=== PATIENT | male | born 1950 | race Caucasian/White ===

== ENCOUNTER 2021-09-16 00:35 | Inpatient (IN) | payer OTHER, SELFPAY ==
[2021-09-16] VITALS (9 sets, daily range): BP systolic 97–138; BP diastolic 56–81; PULSE 52–71; RESP 16–18; TEMP 36.4–37.9; O2SAT 96–99; BMI 25.6
--- NOTE | 2021-09-16 00:47 | ED.GENADULT ---
HPI - General Adult General Chief complaint: Abdominal Pain Stated complaint: passing kidney stone Time Seen by Provider: 09/16/21 00:42 Source: patient Mode of arrival: Ambulatory Limitations: no limitations History of Present Illness HPI narrative: Patient is a 71-year-old male. Has a history of testicular cancer. Also history of rheumatoid arthritis. Is on prednisone. Arrives emergency department today for right-sided flank pain. He states that it started earlier today. He has had a kidney stone in the past and he states this feels similar to kidney stone. He also thought the blood in his urine earlier today. His abdomen is tender to palpation. No fevers. He did take some of his oxycodone without much improvement of symptoms. Related Data Home Medications Medication Instructions Recorded Confirmed lisinopril 5 mg tablet 5 mg PO DAILY 09/16/21 09/16/21 oxycodone 5 mg tablet 5 mg PO QID PRN RA pain 09/16/21 09/16/21 Allergies Allergy/AdvReac Type Severity Reaction Status Date / Time No Known Drug Allergies Allergy Verified 09/16/21 00:51 Review of Systems Constitutional Constitutional: Reports system reviewed and no additional complaints, except as documented Gastrointestinal Gastrointestinal: Reports system reviewed and no additional complaints, except as documented Genitourinary Genitourinary: Reports system reviewed and no additional complaints, except as documented Integumentary/Breasts Skin/Breast: Reports system reviewed and no additional complaints, except as documented Hematologic/Lymphatic On Anticoagulants: No Patient History Medical History Essential hypertension Fibrosis lung Rheumatoid arthritis Rheumatoid nodule Testicular cancer Surgical History (Updated 09/16/21 @ 04:35 by DEBORAH Gilliland) History of lobectomy of lung History of lymph node biopsy Family History (Updated 09/16/21 @ 04:37 by DEBORAH Gilliland) Sister Diabetes mellitus Mother Diabetes mellitus Father Cancer Brother Diabetes mellitus Social History marital status: details: Lives with spouse, retired disabled household members: spouse do you feel safe at home: Yes Smoking Status: Former smoker quit status: quit date established (Quit 17 yrs ago) alcohol intake: never substance use type: does not use Smoking Status: Former smoker alcohol intake frequency: holidays/special occasions only Substance Use Type: does not use Exam Initial Vital Signs Initial Vital Signs: Vital Signs Temperature 99.3 F 09/16/21 00:44 Pulse Rate 71 09/16/21 00:44 Respiratory Rate 18 09/16/21 00:44 Blood Pressure 138/65 09/16/21 00:44 Pulse Oximetry 99 09/16/21 00:44 Oxygen Delivery Method 09/16/21 00:44 Const General: cooperative and comfortable HENMT Head: normal to inspection and normocephalic Resp Effort & Inspection: normal respiratory effort Auscultation: clear to auscultation bilaterally Cardio Rate: regular rate Rhythm: regular rhythm GI Inspection: non-distended Palpation: tender (Right side abdomen and suprapubic region) Other: Well-healed surgical incision midline abdomen Skin General: no rashes or lesions noted Neuro General: patient alert, patient awake and moves all extremities Extrem General: normal to inspection and capillary refill normal Course Orders Ordered: ED Orders 09/16/21 00:50 Complete Blood Count AUTO DIFF Stat 09/16/21 01:27 CT kidney ureter bladder (KUB) Stat 09/16/21 01:31 Basic Metabolic Panel Stat Lactate (Lactic Acid) Stat 09/16/21 02:26 Consult to Internal Medicine Stat 09/16/21 02:30 Consult to General Surgery Urgent 09/16/21 02:39 Blood Culture Stat Hydromorphone HCl (Hydromorphone 0.5 Mg Inj) 0.5 mg IV Q2H PRN PRN Reason: Pain, Mild (1-3) Last Admin: 09/16/21 04:22 Dose: 0.5 mg Documented By: MS Sodium Chloride (Normal Saline 0.9%) 1,000 mls @ 125 mls/hr IV CONT UBALDO Last Admin: 09/16/21 02:33 Dose: 125 mls/hr Documented By: ANTHONY Methotrexate (Methotrexate 2.5 Mg Tablet) 20 mg PO BID UBALDO Ondansetron HCl (Ondansetron 4 Mg/2 Ml Inj) 4 mg IV Q4HR PRN PRN Reason: Nausea And Vomiting Prednisone (Prednisone 20 Mg Tablet) 30 mg PO DAILY [facility] Stop: 09/18/21 08:59 Prednisone (Prednisone 5 Mg Tablet) 25 mg PO DAILY [facility] Stop: 09/25/21 08:59 Discontinued Medications Hydromorphone HCl (Hydromorphone 0.5 Mg Inj) 0.5 mg IV NOW ONE Stop: 09/16/21 02:26 Last Admin: 09/16/21 02:33 Dose: 0.5 mg Documented By: ANTHONY Sodium Chloride (Normal Saline 0.9%) 1,000 mls @ 500 mls/hr IV BOLUS ONE Stop: 09/16/21 03:09 Last Admin: 09/16/21 01:36 Dose: Not Given Documented By: MANJEET Ciprofloxacin (Cipro) 400 mg in 200 mls @ 200 mls/hr IV NOW ONE Stop: 09/16/21 03:23 Last Admin: 09/16/21 02:45 Dose: 200 mls/hr Documented By: ANTHONY Metronidazole (Flagyl) 500 mg in 100 mls @ 100 mls/hr IV NOW ONE Stop: 09/16/21 03:23 Last Admin: 09/16/21 04:59 Dose: 100 mls/hr Ketorolac Tromethamine (Ketorolac 30 Mg/Ml Vial) 30 mg IV NOW ONE Stop: 09/16/21 00:45 Last Admin: 09/16/21 00:52 Dose: 30 mg Documented By: MANJEET Vital Signs Vital signs: Vital Signs - 8 hr 09/16/21 00:44 Temperature 99.3 F Pulse Rate 71 Respiratory Rate 18 Blood Pressure 138/65 Pulse Oximetry 99 Oxygen Delivery Method Room Air Medical Decision Making Lab Data Lab results reviewed: Yes I reviewed the patient's lab results. Result diagrams: 09/16/21 00:50 09/16/21 01:31 Labs: Lab Results 09/16/21 09/16/21 09/16/21 Range/Units 00:50 01:31 01:31 WBC 14.2 H (4.5-11.0) X10^3/uL RBC 4.20 L (4.5-5.9) X10^6/uL Hgb 13.2 L (13.5-17.5) g/dL Hct 39.8 L (41-53) % MCV 94.9 (80-100) fL MCH 31.4 (26-34) PG MCHC 33.1 (30-36) % RDW 16.3 H (11.6-14.8) % Plt Count 210 (150-400) X10^3/uL Neut % (Auto) 90.6 H (50-75) % Lymph % (Auto) 4.7 L (25-40) % [place] % (Auto) 3.5 (3-14) % Eos % (Auto) 0.9 L (2-4) % Baso % (Auto) 0.3 (0-2) % Neut # (Auto) 64362 H (6674-7898) /uL Lymph # (Auto) 700 L (6325-9487) /uL [place] # (Auto) 500 (0-900) /uL Eos # (Auto) 100 (0-450) /uL Baso # (Auto) 0 (0-100) /uL Sodium 136 L (137-145) mmol/L Potassium 4.4 (3.4-5.1) mmol/L Chloride 104 (98-107) mmol/L Carbon Dioxide 27 (22-32) mmol/L BUN 19 (9-20) mg/dL Creatinine 0.81 (0.66-1.25) mg/dL Estimated GFR > 60 (>60) mL/min BUN/Creatinine Ratio 23.5 H (6-22) Glucose 127 H (80-110) mg/dL Lactate 1.7 (0.7-2.1) mmol/L Calcium 8.4 (8.4-10.2) mg/dL Urine Dip Bedside Urine Glucose Negative Bedside Urine Bilirubin - Negative Bedside Urine Ketone - Negative Urine Specific [place] 1.025 Bedside Urine Occult Blood - Negative Bedside Urine pH 6.0 Bedside Urine Protein - Negative Bedside Urine Urobilinogen +/- 1mg Bedside Urine Nitrite - Negative Bedside Urine Leukocytes - Negative Esterase Point of care testing: Urine Dip Bedside Urine Glucose Negative Bedside Urine Bilirubin - Negative Bedside Urine Ketone - Negative Urine Specific [place] 1.025 Bedside Urine Occult Blood - Negative Bedside Urine pH 6.0 Bedside Urine Protein - Negative Bedside Urine Urobilinogen +/- 1mg Bedside Urine Nitrite - Negative Bedside Urine Leukocytes - Negative Esterase Imaging Data CT scan - abdomen/pelvis: Radiologist's Impression: [address] [address] [address] Scan Report Signed Patient: Donn Tilley MR#: [id number] : 1950 Acct:[id number] Age/Sex: 71 / M Date of Service: 09/16/21 Loc: ED Accession Number: [id number] ?? Procedure: CT kidney ureter bladder (KUB) Ordering Provider: Wagner Kendall D.O. PROCEDURE:? CT KIDNEY URETER BLADDER (KUB) ? INDICATIONS:? R sided flank pain eval for stone ? TECHNIQUE:? Axial sections were acquired from the lung bases to the pubic symphysis.? Coronal and sagittal reformats were performed.? For radiation dose reduction, the following was used: ?automated exposure control, adjustment of mA and/or kV according to patient size.? ? COMPARISON:? None. ? FINDINGS:? Image quality:? There is metallic streak artifact secondary to patient's surgical clips.? ? ? Lung bases:? There is subpleural reticulation with honeycombing and mild traction bronchiectasis in the lung bases consistent with chronic interstitial lung disease. Heart:? Heart size is enlarged. ? URINARY: Right Kidney and Ureter: ? No stones or hydronephrosis.? No hydroureter.? ? Left Kidney and Ureter: ? No stones or hydronephrosis.? There are a few left renal cysts. ?No hydroureter. ? Bladder:? There is mild bladder wall thickening with mild fat stranding.? No stones. ? ? ? ABDOMEN: Liver:? Noncontrast evaluation of the liver demonstrates no discrete? mass. Gallbladder:? Within normal limits without calcified gallstones.? ? Biliary ducts:? No biliary ductal dilatation.? ? Pancreas:? Unremarkable.? ? Spleen:? Normal in size.? ? Adrenal Glands:? No adrenal nodules.? ? ? Stomach and Bowel:? Stomach and small bowel loops are normal in caliber and wall thickness.? The appendix is normal in appearance.? There is colonic diverticulosis with associated diverticular and segmental colonic wall thickening in the sigmoid colon along with pericolonic fat stranding and fluid consistent with acute diverticulitis.? There are adjacent small foci of free air consistent with sequelae of perforation.? There is a small to moderate amount of pneumoperitoneum within the abdomen.? Small amount of free fluid is demonstrated in the lower abdomen and pelvis.? No discrete loculated fluid collections to suggest an abscess. ? Ventral Wall: ? No hernia.? Abdominal Nodes:? No retroperitoneal or mesenteric adenopathy by size criteria.? Numerous surgical clips are demonstrated in the retroperitoneum consistent with prior lymph node resection.? Vessels:? Aorta and inferior vena cava are normal in size.? ? PELVIS: Pelvic Organs:? Unremarkable.? ? Pelvic Nodes: No enlarged lymph nodes.? Miscellaneous: No inguinal hernias identified. ? ? ? Bones:? Visualized osseous structures demonstrate no suspicious focal lesions. IMPRESSION:? ? 1. Acute diverticulitis in the sigmoid colon with adjacent foci of free air and small amount of free fluid consistent with sequelae of perforation.? No loculated abscess collection. ? 2. Small to moderate amount of pneumoperitoneum demonstrated elsewhere in the abdomen likely secondary to perforated diverticulitis. ? 3. Mild wall thickening and associated fat stranding may reflect reactive changes secondary to adjacent diverticulitis versus a cystitis.? No definite fistula identified. ? 4. No nephrolithiasis or obstructive uropathy. ? Findings discussed with Dr. Kendall on 09/16/2021 at 2:00 a.m..? ? ? Dictated by: Brennen Kilpatrick M.D. on 09/16/2021 at 1:53 ? ? Approved by: Brennen Kilpatrick M.D. on 09/16/2021 at 2:10?? MDM Narrative Medical decision making narrative: Urinalysis did not have any red blood cells. There is no signs of infection. Patient does have leukocytosis however he is also on steroids for his rheumatoid arthritis. He does have right-sided and suprapubic abdominal pain. Because he does not fit classically into kidney stone a CT scan of his abdomen was ordered. The CT scan does show what appears to be perforated diverticulitis. Patient felt better after 1 dose of Toradol. This was given prior to the CT scan report. I did discuss the case with Dr. Schaeffer on-call with General surgery. Antibiotics were ordered. Dr. Schaeffer would like medicine consulted because of his other medical issues. I did discuss this with LETICIA Musa the [facility] hospitalist. Holding orders were placed. Patient was informed of CT scan findings and the need for hospitalization. He expressed understanding and agreement. Discharge Plan Departure Patient Disposition: Admitted As Inpatient Clinical Impression: Diverticulitis of colon with perforation Admit Date/Time: 09/16/21 02:31 Admit Provider: Melanie Schaeffer
[2021-09-16] MEDS: KETOROLAC 30 MG/ML VIAL IV (00:52)
[2021-09-16 01:04] LABS: Add Manual Diff / Slide Review NO; Basophils Absolute Auto 0 /uL (0-100); Basophils Percent Auto 0.3 % (0-2); Eosinophils Absolute Auto 100 /uL (0-450); Eosinophils Percent Auto 0.9 % (2-4); Hematocrit 39.8 % (41-53); Hemoglobin 13.2 g/dL (13.5-17.5); Lymphocytes Absolute Auto 700 /uL (1100-4500); Lymphocytes Percent Auto 4.7 % (25-40); Mean Corpuscular HGB Conc 33.1 % (30-36); Mean Corpuscular Hemoglobin 31.4 PG (26-34); Mean Corpuscular Volume 94.9 fL (80-100); Monocytes Absolute Auto 500 /uL (0-900); Monocytes Percent Auto 3.5 % (3-14); Neutrophils Absolute Auto 12800 /uL (1500-7000); Neutrophils Percent Auto 90.6 % (50-75); Platelet Count 210 X10^3/uL (150-400); Red Cell Distribution Width 16.3 % (11.6-14.8); White Blood Cell Count 14.2 X10^3/uL (4.5-11.0)
--- NOTE | 2021-09-16 01:27 | DI.CT.S_ITS ---
PROCEDURE: CT KIDNEY URETER BLADDER (KUB) INDICATIONS: R sided flank pain eval for stone TECHNIQUE: Axial sections were acquired from the lung bases to the pubic symphysis. Coronal and sagittal reformats were performed. For radiation dose reduction, the following was used: automated exposure control, adjustment of mA and/or kV according to patient size. COMPARISON: None. FINDINGS: Image quality: There is metallic streak artifact secondary to patient's surgical clips. Lung bases: There is subpleural reticulation with honeycombing and mild traction bronchiectasis in the lung bases consistent with chronic interstitial lung disease. Heart: Heart size is enlarged. URINARY: Right Kidney and Ureter: No stones or hydronephrosis. No hydroureter. Left Kidney and Ureter: No stones or hydronephrosis. There are a few left renal cysts. No hydroureter. Bladder: There is mild bladder wall thickening with mild fat stranding. No stones. ABDOMEN: Liver: Noncontrast evaluation of the liver demonstrates no discrete mass. Gallbladder: Within normal limits without calcified gallstones. Biliary ducts: No biliary ductal dilatation. Pancreas: Unremarkable. Spleen: Normal in size. Adrenal Glands: No adrenal nodules. Stomach and Bowel: Stomach and small bowel loops are normal in caliber and wall thickness. The appendix is normal in appearance. There is colonic diverticulosis with associated diverticular and segmental colonic wall thickening in the sigmoid colon along with pericolonic fat stranding and fluid consistent with acute diverticulitis. There are adjacent small foci of free air consistent with sequelae of perforation. There is a small to moderate amount of pneumoperitoneum within the abdomen. Small amount of free fluid is demonstrated in the lower abdomen and pelvis. No discrete loculated fluid collections to suggest an abscess. Ventral Wall: No hernia. Abdominal Nodes: No retroperitoneal or mesenteric adenopathy by size criteria. Numerous surgical clips are demonstrated in the retroperitoneum consistent with prior lymph node resection. Vessels: Aorta and inferior vena cava are normal in size. PELVIS: Pelvic Organs: Unremarkable. Pelvic Nodes: No enlarged lymph nodes. Miscellaneous: No inguinal hernias identified. Bones: Visualized osseous structures demonstrate no suspicious focal lesions. IMPRESSION: 1. Acute diverticulitis in the sigmoid colon with adjacent foci of free air and small amount of free fluid consistent with sequelae of perforation. No loculated abscess collection. 2. Small to moderate amount of pneumoperitoneum demonstrated elsewhere in the abdomen likely secondary to perforated diverticulitis. 3. Mild wall thickening and associated fat stranding may reflect reactive changes secondary to adjacent diverticulitis versus a cystitis. No definite fistula identified. 4. No nephrolithiasis or obstructive uropathy. Findings discussed with Dr. Kendall on 09/16/2021 at 2:00 a.m.. Dictated by: Brennen Kilpatrick M.D. on 09/16/2021 at 1:53 Approved by: Brennen Kilpatrick M.D. on 09/16/2021 at 2:10
[2021-09-16 02:08] LABS: BUN Creatinine Ratio 23.5 (6-22); Blood Urea Nitrogen 19 mg/dL (9-20); Calcium 8.4 mg/dL (8.4-10.2); Carbon Dioxide 27 mmol/L (22-32); Chloride 104 mmol/L (98-107); Estimated Glomerular Filt Rate > 60 mL/min (>60); Glucose 127 mg/dL (80-110); HEMOLYSIS 23 (0-50); Potassium 4.4 mmol/L (3.4-5.1); Sodium 136 mmol/L (137-145)
[2021-09-16] MEDS: HYDROMORPHONE 0.5 MG INJ IV ×3 (02:33→06:14)
[2021-09-16] MEDS: SODIUM CHLORIDE 0.9% 1,000 ML 125 ML IV (02:33)
[2021-09-16 02:41] LABS: Lactate (Lactic Acid) 1.7 mmol/L (0.7-2.1)
[2021-09-16] MEDS: CIPROFLOXACIN 400 MG/200 ML PIGGYBACK 200 MG IV ×2 (02:45→15:59)
[2021-09-16 03:31] LABS: COVID19 -Nasal RAPID Negative (Negative)
--- NOTE | 2021-09-16 04:14 | P.CONS_ITS ---
History of Present Illness Consult details Date Patient Seen: 09/16/21 Time Patient Seen: 04:14 Chief complaint: passing kidney stone Reason for consult: Management of RA & HTN Narrative: Donn Tilley is a 71yr old male who is visiting from [facility] with his . The patient developed acute onset of abdominal pain approxi mately 3:00 p.m. on 09/15/2021, following which he presented to the ED. Patient denies any chest pain, shortness of breath, nausea, vomiting, diarrhea, fever, body aches, chills, recent illness, injury, or trauma. Patient denied urinary dysuria frequency or urgency but noted blood in the urine and difficulty with urination no bowel issues. Patient is a disabled and regularly gets his care at the ID. Medical history of testicular cancer that was resolved in 2000, via removal large number of lymph nodes from the abdomen and trunk. Patient also suffers from rheumatoid arthritis, on chronic steriods, with weekly injections, methotrexate, and oxycodone for pain. Developed a large rheumatoid nodule that he reports was located in his trunk area attached to both his Left lung and heart. He reported that nodule was not able to be removed but was detached from the heart and the lung through a partial left lung lobectomy. Patient also has essential hypertension and takes lisinopril 5 mg q.day and fibrosis of the lung. upon abdominal/pelvis CT patient was found to have diverticulitis of the colon with perforation. Patient is being admitted by Dr. Maksim enriquez surgery, who is graciously requested that the Internal Medicine hospitalist Service consult regarding the patient's hypertension and rheumatoid arthritis. Upon admit patient is resting comfortably in bed, mildly febrile with a temp of 99.3?, BP 138/65, HR 71, R 18, O2 saturation 99% on room air, with developing ab d discomfort. Patient has an elevated WBC 14.2 with a left shift neutrophils 12,800, HGB 13.2, HCT 39.8, remainder of patient's CMP to include liver enzymes, and lactate WNL. Patient's KUB demonstrated acute diverticulitis in the sigmoid colon with adjacent foci of free air and small amount of free fluid consistent with sequelae of perforation with a small to moderate amount of pneumoperitoneum demonstrated elsewhere in the abdomen, ans mild wall thickening and associated fat stranding. Patient admitted under Dr. Schaeffer general surgery for diverticulitis of colon with perforation. ? Meds Home Medications and Allergies Home Medications Medication Instructions Recorded Confirmed Type lisinopril 5 mg tablet 5 mg PO DAILY 09/16/21 09/16/21 History oxycodone 5 mg tablet 5 mg PO QID PRN RA pain 09/16/21 09/16/21 History Allergies Allergy/AdvReac Type Severity Reaction Status Date / Time No Known Drug Allergies Allergy Verified 09/16/21 00:51 Review of Systems Review of Systems Narrative: All 12 point systems reviewed with the patient and are negative except otherwise documented. Exam Vital Signs (past 8 hours): - 09/16/21 00:44 09/16/21 03:07 09/16/21 03:07 Temperature 99.3 F Pulse Rate 71 68 Respiratory Rate 18 Blood Pressure 138/65 118/69 Pulse Oximetry 99 96 Oxygen Delivery Method Room Air Oxygen Flow Rate 09/16/21 03:48 Temperature 100 F H Pulse Rate 65 Respiratory Rate 18 Blood Pressure 118/81 Pulse Oximetry 97 Oxygen Delivery Method Oxygen Flow Rate 0 Oxygen Delivery Method Room Air Oxygen Flow Rate 0 Narrative Exam Narrative: General: Patient is a well-developed, well-nourished male in no acute distress at this time. HEENT: Normocephalic, atraumatic, extraocular muscles intact, oral pharynx is clear and mucous membranes are moist. Neck is supple and symmetric, trachea is midline, no adenopathy, no thyroid enlargement, nontender, no masses palpated. Negative for JVD Chest: Normal AP diameter and contour without kyphoscoliosis, no nasal flaring, retractions, or tachypneic labored breathing. Lungs: Auscultation of all lung [place] are clear without adventitious sounds, wheezes, rhonchi, or rales. Cardio: S1 & S2 with irregularly regular rate and rhythm without murmur, rubs, or gallops, no carotid bruit, no cardiac pulsations present. Abdomen: Soft tender, Bowel sounds are present in all 4 quadrants. Musculoskeletal: Muscle strength and tone are equal within normal limits, no deformity, crepitus, effusions, cyanosis, clubbing or edema present. Full range of motion intact radial and pedal pulses are normal. Skin: Warm dry and intact without rashes, ulcerations or petechiae. Neuro: Alert and orientated x3, strength is +5/5 in all extremities, sensation to touch intact, no gross deficits noted of cranial nerves. Psych: Patient has a well-kept appearance, appropriate affect, mental status attitude thought context and judgment are appropriate for age. Objective Labs Result Diagrams: 09/16/21 00:50 09/16/21 01:31 Labs: Laboratory Results - last 24 hr 09/16/21 09/16/21 09/16/21 00:50 01:31 01:31 WBC 14.2 H RBC 4.20 L Hgb 13.2 L Hct 39.8 L MCV 94.9 MCH 31.4 MCHC 33.1 RDW 16.3 H Plt Count 210 Neut % (Auto) 90.6 H Lymph % (Auto) 4.7 L [place] % (Auto) 3.5 Eos % (Auto) 0.9 L Baso % (Auto) 0.3 Neut # (Auto) 93817 H Lymph # (Auto) 700 L [place] # (Auto) 500 Eos # (Auto) 100 Baso # (Auto) 0 Sodium 136 L Potassium 4.4 Chloride 104 Carbon Dioxide 27 BUN 19 Creatinine 0.81 Estimated GFR > 60 BUN/Creatinine Ratio 23.5 H Glucose 127 H Lactate 1.7 Calcium 8.4 SARS-CoV-2 (PCR) 09/16/21 03:10 WBC RBC Hgb Hct MCV MCH MCHC RDW Plt Count Neut % (Auto) Lymph % (Auto) [place] % (Auto) Eos % (Auto) Baso % (Auto) Neut # (Auto) Lymph # (Auto) [place] # (Auto) Eos # (Auto) Baso # (Auto) Sodium Potassium Chloride Carbon Dioxide BUN Creatinine Estimated GFR BUN/Creatinine Ratio Glucose Lactate Calcium SARS-CoV-2 (PCR) Negative [facility] Medical History (Updated 09/16/21 @ 04:35 by DEBORAH Gilliland) Essential hypertension Fibrosis lung Rheumatoid arthritis Rheumatoid nodule Testicular cancer Surgical History (Updated 09/16/21 @ 04:35 by DEBORAH Gilliland) History of lobectomy of lung History of lymph node biopsy Family History (Updated 09/16/21 @ 04:36 by DEBORAH Gilliland) Sister Diabetes mellitus Mother Diabetes mellitus Father Cancer Brother Diabetes mellitus Social History marital status: details: Lives with spouse, retired disabled household members: spouse Safety do you feel safe at home: Yes Tobacco & Substance Use Smoking Status: Former smoker quit status: quit date established (Quit 17 yrs ago) alcohol intake: never substance use type: does not use Assessment & Plan Assessment & Plan narrative: Donn Tilley is a 71yr old male with a history of testicular cancer, fibrosis of the lungs, rheumatoid arthritis, rheumatoid nodule, and hypertension who is being admitted by Dr. Schaeffer general surgery for diverticulitis of the colon with perforation. Dr. Schaeffer has graciously requested that the hospitalist service consult regarding management of the patient's rheumatoid arthritis and hypertension. 1. Diverticulitis of the colon with perforation, acute, present on admission- Stable -managed by Dr. Schaeffer general surgery 2. Rheumatoid arthritis, with rheumatoid nodule, chronic steroids, chronic, present on admission -patient is currently on a prednisone taper: Tapering down by 5 mg Q 7 days. He is on day 5 (30 mg q.day x7) -will continue 30 mg of prednisone x2 days, then decrease to 25 mg q.day x7 days. -Continue methotrexate 20 mg b.i.d., oxycodone 5 mg q.i.d. 3. Essential hypertension, chronic, controlled, present on admission -continue lisinopril 5 mg 4. History of testicular cancer, resolved 2000, not present on admission -patient takes no medications or treatment. Code status:Full Surrogate decision maker:Beatriz Tilley ALISSA PCR:Negative DVT/VTE prophylaxis:Scd's only-medication TBD by Dr. Schaeffer. Disposition: Consult I have utilized all available immediate resources to obtain, update, or review the patient's current medications. I confirmed that the patient's advanced care plan is present, Code status is documented and/or surrogate decision maker is listed in the patient's medical record. Time Spent With Patient Critical Care time: I spent a total of [] minutes of critical care time on this patient's care today; this time is exclusive of procedural time.
[2021-09-16] MEDS: metroNIDAZOLE 500 MG/100 ML PIGGYBACK 100 MG IV ×3 (04:59→20:37)
--- NOTE | 2021-09-16 06:08 | PC.NURSE ---
Pt admitted tonight due to perforated diverticulitis. pt alert and oriented, pain being control with dilaudid ivp 0.5 mg. Pt here visiting with spouse Beatriz from [facility]. Pt waiting on surgeon to come in to see his this am. Pt place on tele due to irregular Hr which according to him it's new.
--- NOTE | 2021-09-16 07:13 | DI.RAD.S_ITS ---
PROCEDURE: XR CHEST 1V INDICATIONS: SBO TECHNIQUE: One view of the chest was acquired. COMPARISON: [facility], CT, CT KIDNEY URETER BLADDER (KUB), 09/16/2021, 1:33. FINDINGS: Surgical changes and devices: Surgical clips are seen in the upper abdomen.. Lungs and pleura: A small amount of free air is seen in the the central diaphragm as demonstrated on the CT performed earlier the same day. Chronic interstitial changes are seen in the lower lobes bilaterally. No pleural effusion or pneumothorax. Mediastinum: Mediastinal contours appear normal. Heart size is normal. Bones and chest wall: No suspicious bony lesions. Overlying soft tissues appear unremarkable. IMPRESSION: 1. Small amount of free air under the diaphragm as seen on CT from earlier the same day. 2. Chronic interstitial lung disease involving the lower lobes bilaterally. Dictated by: Cornelius Lindo M.D. on 09/16/2021 at 7:54 Approved by: Cornelius Lindo M.D. on 09/16/2021 at 8:03
[2021-09-16 08:06] LABS: Add Manual Diff / Slide Review NO; Basophils Absolute Auto 100 /uL (0-100); Basophils Percent Auto 0.7 % (0-2); Eosinophils Absolute Auto 0 /uL (0-450); Hematocrit 35.9 % (41-53); Hemoglobin 12.1 g/dL (13.5-17.5); Lymphocytes Absolute Auto 500 /uL (1100-4500); Lymphocytes Percent Auto 2.9 % (25-40); Mean Corpuscular HGB Conc 33.6 % (30-36); Mean Corpuscular Hemoglobin 31.6 PG (26-34); Mean Corpuscular Volume 94.1 fL (80-100); Monocytes Absolute Auto 300 /uL (0-900); Monocytes Percent Auto 1.9 % (3-14); Neutrophils Absolute Auto 16100 /uL (1500-7000); Neutrophils Percent Auto 94.5 % (50-75); Platelet Count 167 X10^3/uL (150-400); Red Blood Cell Count 3.81 X10^6/uL (4.5-5.9); Red Cell Distribution Width 16.1 % (11.6-14.8); White Blood Cell Count 17.1 X10^3/uL (4.5-11.0)
[2021-09-16 08:20] LABS: Alanine Aminotransferase 34 IU/L (<50); Albumin 3.5 g/dL (3.5-5.0); Albumin Globulin Ratio 1.4 (1.0-2.8); Alkaline Phosphatase 81 U/L (38-126); Aspartate Aminotransferase 39 IU/L (17-59); BUN Creatinine Ratio 21.6 (6-22); Bilirubin Total 1.2 mg/dL (0.2-1.3); Blood Urea Nitrogen 19 mg/dL (9-20); Calcium 8.5 mg/dL (8.4-10.2); Carbon Dioxide 28 mmol/L (22-32); Chloride 102 mmol/L (98-107); Estimated Glomerular Filt Rate > 60 mL/min (>60); Globulin 2.5 g/dL (1.7-4.1); Glucose 126 mg/dL (80-110); HEMOLYSIS < 15 (0-50); Potassium 4.9 mmol/L (3.4-5.1); Sodium 135 mmol/L (137-145)
--- NOTE | 2021-09-16 08:26 | PM.HP.1 ---
History of Present Illness History of Present Illness Date Patient Seen: 09/16/21 Time Patient Seen: 08:26 Date of Onset of Symptoms: 09/16/21 Chief complaint: passing kidney stone Narrative: Right sided abdominal pain with w/o in ED showing pneumoparitoneum and perforated diverticulitis w/o bleeding or abscess. He has general abdominal pain. Previous episode many years ago. Last colonoscopy was 5 years ago and normal. Patient History Medical History Essential hypertension Fibrosis lung Rheumatoid arthritis Rheumatoid nodule Testicular cancer Surgical History History of lobectomy of lung History of lymph node biopsy Family & Social History Family History Sister Diabetes mellitus Mother Diabetes mellitus Father Cancer Brother Diabetes mellitus Social History: household members spouse Prior Living Arrangements RV Safety & Behavioral: Feels Safe in Current Yes Environment Tobacco & Substance use: Smoking Status Former smoker alcohol intake never alcohol intake frequency holiday/special occasion Substance Use Type does not use Meds Home Medications and Allergies Home Medications Medication Instructions Recorded Confirmed Type lisinopril 5 mg tablet 5 mg PO DAILY 09/16/21 09/16/21 History methotrexate sodium 2.5 mg tablet 20 mg PO DAILY 09/16/21 09/16/21 History oxycodone 5 mg tablet 5 mg PO QID PRN RA pain 09/16/21 09/16/21 History prednisone 5 mg tablet 5 mg PO DAILY 09/16/21 09/16/21 History Allergies Allergy/AdvReac Type Severity Reaction Status Date / Time No Known Drug Allergies Allergy Verified 09/16/21 00:51 Review of Systems Review of Systems Narrative: just getting over a rheumatoid flare and doing a boost dose prednisone ROS: Yes All systems reviewed with the patient and are negative except as otherwise documented Exam Vital Signs (past 8 hours): - 09/16/21 00:44 09/16/21 03:07 09/16/21 03:07 Temperature 99.3 F Pulse Rate 71 68 Respiratory Rate 18 Blood Pressure 138/65 118/69 Pulse Oximetry 99 96 Oxygen Delivery Method Room Air Oxygen Flow Rate 09/16/21 03:48 09/16/21 04:44 09/16/21 06:22 Temperature 100 F H 100.2 F H 99.6 F Pulse Rate 65 Respiratory Rate 18 Blood Pressure 118/81 Pulse Oximetry 97 Oxygen Delivery Method Oxygen Flow Rate 0 Oxygen Delivery Method Room Air Oxygen Flow Rate 0 Const General: cooperative Nutritional Appearance: average body habitus Orientation: alert and oriented x3 HENMT Head: normal to inspection, normocephalic and atraumatic Nose: external nose normal Face and sinus: normal facial exam Eyes General: appearance normal, both eyes and all related structures Neck Neck: trachea midline Chest Chest: normal inspection of the chest Resp Effort & Inspection: normal respiratory effort and able to speak in complete sentences Cardio Rate: regular rate Rhythm: regular rhythm GI Inspection: normal to inspection Palpation: soft and tender (generalized tenderness is mild) Skin General: no rashes or lesions noted Neuro General: patient alert and patient oriented x3 Cognition: normal cognition Speech: speech normal Extrem General: normal to inspection and full ROM Other: edema in the hands Psych Judgment: judgment good Objective Labs Result Diagrams: 09/16/21 07:55 09/16/21 07:55 Labs: Laboratory Results - last 24 hr 09/16/21 09/16/21 09/16/21 00:50 01:31 01:31 WBC 14.2 H RBC 4.20 L Hgb 13.2 L Hct 39.8 L MCV 94.9 MCH 31.4 MCHC 33.1 RDW 16.3 H Plt Count 210 Neut % (Auto) 90.6 H Lymph % (Auto) 4.7 L [place] % (Auto) 3.5 Eos % (Auto) 0.9 L Baso % (Auto) 0.3 Neut # (Auto) 98325 H Lymph # (Auto) 700 L [place] # (Auto) 500 Eos # (Auto) 100 Baso # (Auto) 0 Sodium 136 L Potassium 4.4 Chloride 104 Carbon Dioxide 27 BUN 19 Creatinine 0.81 Estimated GFR > 60 BUN/Creatinine Ratio 23.5 H Glucose 127 H Lactate 1.7 Calcium 8.4 Total Bilirubin AST ALT Alkaline Phosphatase Total Protein Albumin Globulin Albumin/Globulin Ratio SARS-CoV-2 (PCR) 09/16/21 09/16/21 09/16/21 03:10 07:55 07:55 WBC 17.1 H RBC 3.81 L Hgb 12.1 L Hct 35.9 L MCV 94.1 MCH 31.6 MCHC 33.6 RDW 16.1 H Plt Count 167 Neut % (Auto) 94.5 H Lymph % (Auto) 2.9 L [place] % (Auto) 1.9 L Eos % (Auto) 0.0 L Baso % (Auto) 0.7 Neut # (Auto) 05198 H Lymph # (Auto) 500 L [place] # (Auto) 300 Eos # (Auto) 0 Baso # (Auto) 100 Sodium 135 L Potassium 4.9 Chloride 102 Carbon Dioxide 28 BUN 19 Creatinine 0.88 Estimated GFR > 60 BUN/Creatinine Ratio 21.6 Glucose 126 H Lactate Calcium 8.5 Total Bilirubin 1.2 AST 39 ALT 34 Alkaline Phosphatase 81 Total Protein 6.0 L Albumin 3.5 Globulin 2.5 Albumin/Globulin Ratio 1.4 SARS-CoV-2 (PCR) Negative Assessment & Plan Assessment & Plan narrative: Perforated diverticulitis with pneumoparitoneum. Complicated by immunosupression. Plan: Attempt IV antibiotics alone. Likely needs surgery. COVID-19 COVID-19 status: Negative Time Spent With Patient Time with patient: 30 to 49 minutes with 50% spent counseling/coordinating care Critical Care time: I spent a total of [] minutes of critical care time on this patient's care today; this time is exclusive of procedural time.
[2021-09-16] MEDS: ACETAMINOPHEN 325 MG TABLET 650 MG PO ×2 (09:01→20:37)
[2021-09-16] MEDS: LACTATED RINGERS 1,000 ML 100 ML IV (09:01)
[2021-09-16] MEDS: OXYCODONE IR 5 MG TABLET PO (09:02)
[2021-09-16] MEDS: predniSONE 20 MG TABLET 30 MG PO (09:02)
[2021-09-16] MEDS: CELECOXIB 200 MG CAPSULE PO ×2 (09:03→20:37)
[2021-09-16 09:52] LABS: Cortisol AM (Before 10AM) 4.68 ug/dL (4.46-22.7)
--- NOTE | 2021-09-16 10:12 | PM.PN.1 ---
Subjective Subjective Date Patient Seen: 09/16/21 Interval history: This is a brief progress update note. 71 year old male with PMH of HTN and RA admitted with perforated diverticulitis. This morning he has continued pain, slightly worse after some clear liquids this morning. Oral pain medications are ineffective. Will increase IV dilaudid to help with pain management for now. General surgery believes surgical management is likely. He is on 5 mg prednisone chronically, with recent taper. Am cortisol today is <5 prior to morning prednisone dose, consistent with HPA axis suppression. He will require perioperative steroid dosing which should be 100 mg of hydrocortisone before induction of anesthesia and 50 mg every 8 hours for 3 doses after surgery. For his home antihypertensive medications, these will be held for now given low-normal BP currently, risk of progression to sepsis, and recommendations to ideally hold elicia-inhibition prior to surgery. . Exam Vital Signs (past 8 hours): - 09/16/21 03:07 09/16/21 03:07 09/16/21 03:48 Temperature 100 F H Pulse Rate 68 65 Respiratory Rate 18 Blood Pressure 118/69 118/81 Pulse Oximetry 96 97 Oxygen Flow Rate 0 09/16/21 04:44 09/16/21 06:22 09/16/21 08:30 Temperature 100.2 F H 99.6 F 99.9 F H Pulse Rate 56 L Respiratory Rate 16 Blood Pressure 110/67 Pulse Oximetry 99 Oxygen Flow Rate 0 Oxygen Delivery Method Room Air Oxygen Flow Rate 0 Objective Labs Result Diagrams: 09/16/21 07:55 09/16/21 07:55 Labs: Laboratory Results - last 24 hr 09/16/21 09/16/21 09/16/21 00:50 01:31 01:31 WBC 14.2 H RBC 4.20 L Hgb 13.2 L Hct 39.8 L MCV 94.9 MCH 31.4 MCHC 33.1 RDW 16.3 H Plt Count 210 Neut % (Auto) 90.6 H Lymph % (Auto) 4.7 L [place] % (Auto) 3.5 Eos % (Auto) 0.9 L Baso % (Auto) 0.3 Neut # (Auto) 34577 H Lymph # (Auto) 700 L [place] # (Auto) 500 Eos # (Auto) 100 Baso # (Auto) 0 Sodium 136 L Potassium 4.4 Chloride 104 Carbon Dioxide 27 BUN 19 Creatinine 0.81 Estimated GFR > 60 BUN/Creatinine Ratio 23.5 H Glucose 127 H Lactate 1.7 Calcium 8.4 Total Bilirubin AST ALT Alkaline Phosphatase Total Protein Albumin Globulin Albumin/Globulin Ratio Cortisol AM Sample SARS-CoV-2 (PCR) 09/16/21 09/16/21 09/16/21 03:10 07:55 07:55 WBC 17.1 H RBC 3.81 L Hgb 12.1 L Hct 35.9 L MCV 94.1 MCH 31.6 MCHC 33.6 RDW 16.1 H Plt Count 167 Neut % (Auto) 94.5 H Lymph % (Auto) 2.9 L [place] % (Auto) 1.9 L Eos % (Auto) 0.0 L Baso % (Auto) 0.7 Neut # (Auto) 14609 H Lymph # (Auto) 500 L [place] # (Auto) 300 Eos # (Auto) 0 Baso # (Auto) 100 Sodium 135 L Potassium 4.9 Chloride 102 Carbon Dioxide 28 BUN 19 Creatinine 0.88 Estimated GFR > 60 BUN/Creatinine Ratio 21.6 Glucose 126 H Lactate Calcium 8.5 Total Bilirubin 1.2 AST 39 ALT 34 Alkaline Phosphatase 81 Total Protein 6.0 L Albumin 3.5 Globulin 2.5 Albumin/Globulin Ratio 1.4 Cortisol AM Sample SARS-CoV-2 (PCR) Negative 09/16/21 07:55 WBC RBC Hgb Hct MCV MCH MCHC RDW Plt Count Neut % (Auto) Lymph % (Auto) [place] % (Auto) Eos % (Auto) Baso % (Auto) Neut # (Auto) Lymph # (Auto) [place] # (Auto) Eos # (Auto) Baso # (Auto) Sodium Potassium Chloride Carbon Dioxide BUN Creatinine Estimated GFR BUN/Creatinine Ratio Glucose Lactate Calcium Total Bilirubin AST ALT Alkaline Phosphatase Total Protein Albumin Globulin Albumin/Globulin Ratio Cortisol AM Sample 4.68 SARS-CoV-2 (PCR) [facility] Medical History Essential hypertension Fibrosis lung Rheumatoid arthritis Rheumatoid nodule Testicular cancer Surgical History History of lobectomy of lung History of lymph node biopsy Family History Sister Diabetes mellitus Mother Diabetes mellitus Father Cancer Brother Diabetes mellitus Social History marital status: details: Lives with spouse, retired disabled household members: spouse do you feel safe at home: Yes Smoking Status: Former smoker quit status: quit date established (Quit 17 yrs ago) alcohol intake: never substance use type: does not use Assessment & Plan Time Spent With Patient Critical Care time: I spent a total of [] minutes of critical care time on this patient's care today; this time is exclusive of procedural time.
[2021-09-16] MEDS: HYDROMORPHONE 1 MG INJ IV ×3 (10:23→19:07)
--- NOTE | 2021-09-16 10:30 | PC.NURSE ---
Addendum entered by Karen Morin R.N. 09/16/21 16:28: Patient given dilaudid 1mg iv x2 and patient has had good pain control with both. He is getting iv antibiotics and tolerating well. Addendum entered by Karen Morin R.N. 09/16/21 10:57: The Dilaudid that was given to patient for 08/15 pain to his abdomen has improved and he is more comfortable. IVF of LR at 100cc/hr is infusing and patient is tolerating this well. Original Note: 0800- Patient having a lot of pain in his abdomen, given tylenol, celebrex, and oxycodone 5mg and this did not do anything for his pain. He was just given 1mg of dilaudid, will check pain level in a half of an hour to see if pain is improving. He is lying supine with a blanket on him now.
--- NOTE | 2021-09-16 12:36 | CM.DANOTE ---
Initial Discharge Planning Note: Case received, EMR reviewed. Met with patient in his room. PCP: in [facility] Payer: [employer] and self pay 71 year old male admitted to hospitalist team early this morning. He and his spouse are traveling up from the [facility] and patient began experiencing abdominal and flank pain and came in to our ED. Imaging shows acute diverticulitis with probably perforation. Patient has been independent in his ADLs and drives. He has supportive and they travel alot in their RV. P: DCP to follow for needs. GLENN Discharge Planning/Care Management CM Discharge Assessment Start: 09/16/21 12:33 Freq: Status: Active Protocol: Document 09/16/21 12:34 (Rec: 09/16/21 12:36 [id number]) Discharge Planning Assessment Assigned Armature Winder Molly Gonzalez RN/DCp Advance Directives? No History Provided By Patient Prior Living Arrangements RV Household Members spouse Type of transporation used prior to Drives own vehicle admit Independent with ADL's Yes Is patient alert and oriented? Yes Caregiver for Another No Barriers to Discharge No Discharge Plan Home Transportation Arrangement spouse will transport in private vehicle. They live in [facility] and are up here visiting. Referrals Initiated None needed Whiteboard Updated in Patient Room with Yes name and ext. # of Armature Winder Review Status In Process Next Review Type Continued Stay Review
[2021-09-16] MEDS: FLUCONAZOLE 200 MG/100 ML PIGGYBACK 100 MG IV (12:39)
[2021-09-16] MEDS: PANTOPRAZOLE DR 40 MG TABLET PO (20:37)
[2021-09-16] MEDS: HYDROMORPHONE 2 MG INJ IV (22:46)
--- NOTE | 2021-09-16 23:37 | PC.NURSE ---
Addendum entered by Alexia Ferrari R.N. 09/17/21 04:16: Had 2mg of IV Dilaudid at 0230 and is again stating pain is 7/10. Lencho MOTT, informed as unable to have more Dilaudid until 0530. Order received for 10mg of oxycodone for 7-10 pain. Addendum entered by Alexia Ferrari R.N. 09/16/21 23:49: correction: fall risk score is moderate but patient is steady on feet so alarm is not in use. Original Note: Patient is alert and oriented. Breath sounds with crackles in bilateral bases but patient reports history of pulmonary fibrosis and states crackles are his normal; RA sat is 97%. HRR but bradycardic at 53 bpm. BP low at 97/56. 1999 telemetry reading has not yet been read/recorded per Esperanza DEAN [facility]. Denied nausea. BT hypoactive but is passing flatus. States he feels bloated and has constant abdominal pain especially in bilateral quadrants. States pain can be sharp and but after pain medications pain continues but is more dull; is receiving scheduled Tylenol and prn Dilaudid. Is voiding without dysuria but states he has some frequency. Independent with mobility and is up walking in room/halls. Fall risk score is low.
[2021-09-17] VITALS (7 sets, daily range): BP systolic 97–115; BP diastolic 48–76; PULSE 57–66; RESP 16–18; TEMP 35.9–36.7; O2SAT 95–100
[2021-09-17] MEDS: ACETAMINOPHEN 325 MG TABLET 650 MG PO ×5 (00:04→23:30)
[2021-09-17] MEDS: LACTATED RINGERS 1,000 ML 120 ML IV ×2 (00:09→11:00)
[2021-09-17] MEDS: HYDROMORPHONE 2 MG INJ IV (02:30)
[2021-09-17] MEDS: CIPROFLOXACIN 400 MG/200 ML PIGGYBACK 200 MG IV ×2 (03:00→15:26)
[2021-09-17] MEDS: OXYCODONE IR 5 MG TABLET PO ×2 (04:18→17:17)
[2021-09-17] MEDS: metroNIDAZOLE 500 MG/100 ML PIGGYBACK 100 MG IV ×3 (04:59→20:41)
[2021-09-17] MEDS: HYDROMORPHONE 1 MG INJ IV ×2 (05:26→22:45)
[2021-09-17] MEDS: PANTOPRAZOLE DR 40 MG TABLET PO ×2 (06:10→20:42)
[2021-09-17 06:41] LABS: Add Manual Diff / Slide Review NO; Basophils Absolute Auto 0 /uL (0-100); Basophils Percent Auto 0.1 % (0-2); Eosinophils Absolute Auto 0 /uL (0-450); Eosinophils Percent Auto 0.3 % (2-4); Hematocrit 35.4 % (41-53); Hemoglobin 11.7 g/dL (13.5-17.5); Lymphocytes Absolute Auto 500 /uL (1100-4500); Lymphocytes Percent Auto 4.1 % (25-40); Mean Corpuscular HGB Conc 33.2 % (30-36); Mean Corpuscular Hemoglobin 31.7 PG (26-34); Mean Corpuscular Volume 95.5 fL (80-100); Monocytes Absolute Auto 200 /uL (0-900); Monocytes Percent Auto 1.8 % (3-14); Neutrophils Absolute Auto 11500 /uL (1500-7000); Neutrophils Percent Auto 93.7 % (50-75); Platelet Count 148 X10^3/uL (150-400); Red Cell Distribution Width 16.2 % (11.6-14.8); White Blood Cell Count 12.3 X10^3/uL (4.5-11.0)
[2021-09-17 06:53] LABS: Alanine Aminotransferase 25 IU/L (<50); Albumin 3.4 g/dL (3.5-5.0); Albumin Globulin Ratio 1.3 (1.0-2.8); Alkaline Phosphatase 74 U/L (38-126); Aspartate Aminotransferase 23 IU/L (17-59); BUN Creatinine Ratio 23.9 (6-22); Bilirubin Total 1.6 mg/dL (0.2-1.3); Blood Urea Nitrogen 21 mg/dL (9-20); Calcium 8.5 mg/dL (8.4-10.2); Carbon Dioxide 30 mmol/L (22-32); Chloride 103 mmol/L (98-107); Estimated Glomerular Filt Rate > 60 mL/min (>60); Globulin 2.6 g/dL (1.7-4.1); Glucose 89 mg/dL (80-110); HEMOLYSIS < 15 (0-50); Sodium 136 mmol/L (137-145)
[2021-09-17] MEDS: CELECOXIB 200 MG CAPSULE PO ×2 (08:47→20:41)
[2021-09-17] MEDS: predniSONE 20 MG TABLET 30 MG PO (08:48)
[2021-09-17] MEDS: HYDROMORPHONE 0.5 MG INJ IV (08:49)
[2021-09-17] MEDS: OXYCODONE IR 10 MG TABLET PO ×2 (09:32→14:21)
[2021-09-17] MEDS: FLUCONAZOLE 200 MG/100 ML PIGGYBACK 100 MG IV (09:40)
--- NOTE | 2021-09-17 09:44 | P.PN_ITS ---
Subjective Subjective Date Patient Seen: 09/17/21 Time Patient Seen: 09:44 Interval history: Patient still has pain, is passing gas, no nausea. We reviewed his CT scan together and the fact that WBC is 12,000 and he is afebrile. Exam Vital Signs (past 8 hours): - 09/17/21 04:30 09/17/21 07:49 09/17/21 08:00 Temperature 97.5 F L 98.0 F Pulse Rate 57 L 66 Respiratory Rate 16 16 Blood Pressure 104/48 L 104/59 L Pulse Oximetry 100 98 Oxygen Delivery Method Room Air Oxygen Flow Rate 0 0 Oxygen Delivery Method Room Air Oxygen Flow Rate 0 Narrative Exam Narrative: Abdomen is soft, lower midline tenderness is similar to yesterday. Patient is up taking a shower. Gait is stooped but brisk. Objective Labs Result Diagrams: 09/17/21 06:31 09/17/21 06:31 Labs: Laboratory Results - last 24 hr 09/16/21 09/17/21 09/17/21 07:55 06:31 06:31 WBC 12.3 H RBC 3.70 L Hgb 11.7 L Hct 35.4 L MCV 95.5 MCH 31.7 MCHC 33.2 RDW 16.2 H Plt Count 148 L Neut % (Auto) 93.7 H Lymph % (Auto) 4.1 L [place] % (Auto) 1.8 L Eos % (Auto) 0.3 L Baso % (Auto) 0.1 Neut # (Auto) 70775 H Lymph # (Auto) 500 L [place] # (Auto) 200 Eos # (Auto) 0 Baso # (Auto) 0 Sodium 136 L Potassium 4.0 Chloride 103 Carbon Dioxide 30 BUN 21 H Creatinine 0.88 Estimated GFR > 60 BUN/Creatinine Ratio 23.9 H Glucose 89 Calcium 8.5 Total Bilirubin 1.6 H AST 23 ALT 25 Alkaline Phosphatase 74 Total Protein 6.0 L Albumin 3.4 L Globulin 2.6 Albumin/Globulin Ratio 1.3 Cortisol AM Sample 4.68 PFSH Medical History Essential hypertension Fibrosis lung Rheumatoid arthritis Rheumatoid nodule Testicular cancer Surgical History History of lobectomy of lung History of lymph node biopsy Family History Sister Diabetes mellitus Mother Diabetes mellitus Father Cancer Brother Diabetes mellitus Social History marital status: details: Lives with spouse, retired disabled household members: spouse do you feel safe at home: Yes Smoking Status: Former smoker quit status: quit date established (Quit 17 yrs ago) alcohol intake: never substance use type: does not use Assessment & Plan Assessment & Plan narrative: Stable to improved. reviewed the CT scan to show that air is the most of what escaped the colon with the perforation. Plan: Full liquids today and NPO after midnight. Repeat CT scan tomorrow with po contrast only to see if recovery is appropriate to continue on antibiotics alone in the face of immunosupression. COVID-19 COVID-19 status: Negative Time Spent With Patient Time with patient: 30 to 49 minutes with 50% spent counseling/coordinating care Critical Care time: I spent a total of [] minutes of critical care time on this patient's care today; this time is exclusive of procedural time.
--- NOTE | 2021-09-17 15:16 | CM.DPNOTE ---
Discharge Planning Note: Patient up walking in the halls with his . Patient will undergo CT imaging tomorrow with contrast. P: Patient to discharge home to care of when medically stable. Molly Gonzalez RN/DCP
--- NOTE | 2021-09-17 18:38 | PM.PN.1 ---
Subjective Subjective Date Patient Seen: 09/17/21 Interval history: 71 y/o male with a perforated diverticulum. He continues to have some abdominal pain but notes symptoms have improved. Exam Vital Signs (past 8 hours): - 09/17/21 12:00 09/17/21 16:00 Temperature 97.9 F 97.8 F Pulse Rate 63 60 Respiratory Rate 16 18 Blood Pressure 97/56 L 108/76 Pulse Oximetry 96 98 Oxygen Flow Rate 0 0 Oxygen Delivery Method Room Air Oxygen Flow Rate 0 Narrative Exam Narrative: Pleasant male lying in bed in no acute distress Resp Other: Lungs: clear to auscultation Cardio Other: CV: RRR nl Sl S2 GI Other: Abd: soft/ tender in the right lower quadrant, no rebound tenderness, no boardlike rigidity Extrem Other: no edema Objective Labs Result Diagrams: 09/17/21 06:31 09/17/21 06:31 Labs: Laboratory Results - last 24 hr 09/17/21 09/17/21 06:31 06:31 WBC 12.3 H RBC 3.70 L Hgb 11.7 L Hct 35.4 L MCV 95.5 MCH 31.7 MCHC 33.2 RDW 16.2 H Plt Count 148 L Neut % (Auto) 93.7 H Lymph % (Auto) 4.1 L [place] % (Auto) 1.8 L Eos % (Auto) 0.3 L Baso % (Auto) 0.1 Neut # (Auto) 54767 H Lymph # (Auto) 500 L [place] # (Auto) 200 Eos # (Auto) 0 Baso # (Auto) 0 Sodium 136 L Potassium 4.0 Chloride 103 Carbon Dioxide 30 BUN 21 H Creatinine 0.88 Estimated GFR > 60 BUN/Creatinine Ratio 23.9 H Glucose 89 Calcium 8.5 Total Bilirubin 1.6 H AST 23 ALT 25 Alkaline Phosphatase 74 Total Protein 6.0 L Albumin 3.4 L Globulin 2.6 Albumin/Globulin Ratio 1.3 PFSH Medical History Essential hypertension Fibrosis lung Rheumatoid arthritis Rheumatoid nodule Testicular cancer Surgical History History of lobectomy of lung History of lymph node biopsy Family History Sister Diabetes mellitus Mother Diabetes mellitus Father Cancer Brother Diabetes mellitus Social History marital status: details: Lives with spouse, retired disabled household members: spouse do you feel safe at home: Yes Smoking Status: Former smoker quit status: quit date established (Quit 17 yrs ago) alcohol intake: never substance use type: does not use Assessment & Plan Assessment & Plan narrative: ?Diverticulitis of the colon with perforation, acute, present on admission-Stable -managed by Dr. Schaeffer general surgery -repeat CT with oral contrast in the morning -continue antibiotics 2. Rheumatoid arthritis, with rheumatoid nodule, chronic steroids, chronic, present on admission -patient is currently on a prednisone taper:? Tapering down by 5 mg Q 7 days. He is on day 5 (30 mg q.day x7) -will continue 30 mg of prednisone x2 days, then decrease to 25 mg q.day x7 days. -Continue methotrexate 20 mg b.i.d., oxycodone 5 mg q.i.d. -stess dose steroids 3. Essential hypertension, chronic, controlled, present on admission -continue lisinopril 5 mg 4. History of testicular cancer, resolved 2000, not present on admission -patient takes no medications or treatment. Time Spent With Patient Critical Care time: I spent a total of [] minutes of critical care time on this patient's care today; this time is exclusive of procedural time.
--- NOTE | 2021-09-17 18:42 | DI.CT.S_ITS ---
PROCEDURE: CT ABDOMEN PELVIS WO CON INDICATIONS: follow up perforated diverticultis TECHNIQUE: After the administration of oral contrast, 5 mm thick sections acquired from the diaphragms to the symphysis. 5 mm coronal and sagittal reformats were performed. For radiation dose reduction, the following was used: automated exposure control, adjustment of mA and/or kV according to patient size. COMPARISON: [facility], CT, CT KIDNEY URETER BLADDER (KUB), 09/16/2021, 1:33. FINDINGS: Image quality: Excellent. ABDOMEN: Lung bases: Moderate bibasilar reticulonodular opacity, as before. Calcification of the coronary vasculature. Heart size is normal. Solid organs: Liver is normal in size. Gallbladder is within normal limits . Pancreas is normal in size. Spleen is normal in size. No adrenal nodules. Both kidneys are normal in size, without hydronephrosis or nephrolithiasis. Peritoneum and bowel: Diverticulosis of the sigmoid colon. Thickening of the sigmoid colon, as before. Bowel loops demonstrate otherwise normal wall thickness and caliber. Persistent, moderate pneumoperitoneum. No change in small amount of free fluid within the right pelvis. Nodes and vessels: No retroperitoneal or mesenteric adenopathy by size criteria. Aorta and inferior vena cava are normal in size. Retroperitoneal surgical clips are present, as before. Miscellaneous: No ventral hernias. PELVIS: Genitourinary: Bladder wall thickness is normal. Miscellaneous: No inguinal hernias or adenopathy. Bones: No suspicious bony lesions. No vertebral body compression fractures. IMPRESSION: 1. No significant change in diverticulitis associated with pneumoperitoneum and free fluid. Follow-up colonoscopy is recommended to exclude underlying neoplasm. 2. No change in bibasilar pulmonary opacities, consistent with fibrosis versus pneumonia. Dictated by: Gissell Alicea M.D. on 09/17/2021 at 19:59 Approved by: Gissell Alicea M.D. on 09/17/2021 at 20:02
--- NOTE | 2021-09-17 21:28 | PC.NURSE ---
Addendum entered by Alexia Ferrari R.N. 09/18/21 06:07: Patient had IV Dilaudid at 0511 for complaint of 6/10 pain and now states pain seems to be worsening and rates severity as 7/10. Feels more bloated and appears more distended. Abdomen remains soft but with increased tenderness. TIERA Musa, informed and ordered an extra 1mg of IV Dilaudid to be given. Addendum entered by Alexia Ferrari R.N. 09/17/21 23:32: Per Dr. Schaeffer's progress note will have patient be NPO after 0000; patient verbalizes understanding. Original Note: Patient is alert and oriented. Breath sounds with crackles bilateral bases; RA sat 97%. HR irregular; telemetry has been discontinued. Denies nausea; diet advanced today to full liquids. BT hypoactive but did have BM earlier. Still with abdominal tenderness/bloating but states pain is much improved. Denies dysuria, frequency or urgency with urination. Independent with mobility. Fall risk score is moderate but patient is steady on feet and ambulating in halls independently. Off floor at start of shift to have CT imaging done.
[2021-09-18] MEDS: LACTATED RINGERS 1,000 ML 120 ML IV (01:28)
[2021-09-18] MEDS: HYDROMORPHONE 1 MG INJ IV ×4 (01:45→07:49)
[2021-09-18] MEDS: CIPROFLOXACIN 400 MG/200 ML PIGGYBACK 200 MG IV (02:52)
[2021-09-18] MEDS: metroNIDAZOLE 500 MG/100 ML PIGGYBACK 100 MG IV (04:35)
[2021-09-18] MEDS: ACETAMINOPHEN 325 MG TABLET 650 MG PO (05:11)
[2021-09-18 05:14] VITALS: BP 124/68; PULSE 55; RESP 14; TEMP 36.3; O2SAT 96
[2021-09-18 06:03] LABS: Add Manual Diff / Slide Review NO; Basophils Absolute Auto 100 /uL (0-100); Basophils Percent Auto 0.8 % (0-2); Eosinophils Absolute Auto 0 /uL (0-450); Hemoglobin 11.2 g/dL (13.5-17.5); Lymphocytes Absolute Auto 500 /uL (1100-4500); Lymphocytes Percent Auto 4.6 % (25-40); Mean Corpuscular HGB Conc 33.8 % (30-36); Mean Corpuscular Hemoglobin 32.1 PG (26-34); Mean Corpuscular Volume 94.8 fL (80-100); Monocytes Absolute Auto 200 /uL (0-900); Monocytes Percent Auto 2.1 % (3-14); Neutrophils Absolute Auto 10100 /uL (1500-7000); Neutrophils Percent Auto 92.5 % (50-75); Platelet Count 138 X10^3/uL (150-400); Red Blood Cell Count 3.48 X10^6/uL (4.5-5.9); Red Cell Distribution Width 16.2 % (11.6-14.8); White Blood Cell Count 10.9 X10^3/uL (4.5-11.0)
[2021-09-18 06:15] LABS: Alanine Aminotransferase 21 IU/L (<50); Albumin Globulin Ratio 1.1 (1.0-2.8); Alkaline Phosphatase 79 U/L (38-126); Aspartate Aminotransferase 21 IU/L (17-59); BUN Creatinine Ratio 22.1 (6-22); Bilirubin Total 0.7 mg/dL (0.2-1.3); Blood Urea Nitrogen 19 mg/dL (9-20); Calcium 8.6 mg/dL (8.4-10.2); Carbon Dioxide 29 mmol/L (22-32); Chloride 102 mmol/L (98-107); Estimated Glomerular Filt Rate > 60 mL/min (>60); Globulin 2.7 g/dL (1.7-4.1); Glucose 96 mg/dL (80-110); HEMOLYSIS < 15 (0-50); Potassium 4.5 mmol/L (3.4-5.1); Sodium 134 mmol/L (137-145); Total Protein 5.7 g/dL (6.3-8.2)
[2021-09-18] MEDS: PANTOPRAZOLE DR 40 MG TABLET PO (06:21)
--- NOTE | 2021-09-18 08:10 | PC.NURSE ---
Day shift: Per Dr Schaeffer Pt can have his diet and meds this AM.
[2021-09-18 09:00] VITALS: BP 102/54; PULSE 62; RESP 17; TEMP 36.6; O2SAT 98
[2021-09-18] MEDS: metroNIDAZOLE 500 MG TABLET PO (09:50)
[2021-09-18] MEDS: CELECOXIB 200 MG CAPSULE PO (09:50)
[2021-09-18] MEDS: predniSONE 5 MG TABLET PO (09:51)
[2021-09-18] MEDS: predniSONE 20 MG TABLET PO (09:51)
[2021-09-18] MEDS: OXYCODONE IR 5 MG TABLET PO (09:51)
[2021-09-18] MEDS: FLUCONAZOLE 100 MG TABLET 200 MG PO (09:51)
--- NOTE | 2021-09-18 10:02 | PM.PN.1 ---
Subjective Subjective Date Patient Seen: 09/18/21 Time Patient Seen: 10:02 Interval history: CT scan from last night with reviewed with the patient and his . He is tired, but feels better. Having BMs and tolerating full liquid Exam Vital Signs (past 8 hours): - 09/18/21 05:14 09/18/21 09:00 Temperature 97.3 F L 97.8 F Pulse Rate 55 L 62 Respiratory Rate 14 17 Blood Pressure 124/68 102/54 L Pulse Oximetry 96 98 Oxygen Flow Rate 0 0 Oxygen Delivery Method Room Air Oxygen Flow Rate 0 Narrative Exam Narrative: pulmonary: normal cardiac: normotensive, RRNR Abd: distended, soft, decreased tenderness Objective Labs Result Diagrams: 09/18/21 05:34 09/18/21 05:34 Labs: Laboratory Results - last 24 hr 09/18/21 09/18/21 05:34 05:34 WBC 10.9 RBC 3.48 L Hgb 11.2 L Hct 33.0 L MCV 94.8 MCH 32.1 MCHC 33.8 RDW 16.2 H Plt Count 138 L Neut % (Auto) 92.5 H Lymph % (Auto) 4.6 L [place] % (Auto) 2.1 L Eos % (Auto) 0.0 L Baso % (Auto) 0.8 Neut # (Auto) 23027 H Lymph # (Auto) 500 L [place] # (Auto) 200 Eos # (Auto) 0 Baso # (Auto) 100 Sodium 134 L Potassium 4.5 Chloride 102 Carbon Dioxide 29 BUN 19 Creatinine 0.86 Estimated GFR > 60 BUN/Creatinine Ratio 22.1 H Glucose 96 Calcium 8.6 Total Bilirubin 0.7 AST 21 ALT 21 Alkaline Phosphatase 79 Total Protein 5.7 L Albumin 3.0 L Globulin 2.7 Albumin/Globulin Ratio 1.1 [facility] Medical History Essential hypertension Fibrosis lung Rheumatoid arthritis Rheumatoid nodule Testicular cancer Surgical History History of lobectomy of lung History of lymph node biopsy Family History Sister Diabetes mellitus Mother Diabetes mellitus Father Cancer Brother Diabetes mellitus Social History marital status: details: Lives with spouse, retired disabled household members: spouse do you feel safe at home: Yes Smoking Status: Former smoker quit status: quit date established (Quit 17 yrs ago) alcohol intake: never substance use type: does not use Assessment & Plan Assessment & Plan narrative: Perforated diverticulitis w pneumo peritoneum responding to antibiotics alone. Has immunosuppression for his RA. Reviewed the CT with patient and . There is decreased air and no abscess formation. Free fluid rim above liver and scant free fluid intraloop. These were pointed out to the patient as potential problems. After further education and discussion, we agreed to discharge on 10 days of antibiotics. No other restrictions. Repeat colonoscopy in 8-10 weeks. Plan: Discharge with . They are from [place] but will stay here through Wednesday. COVID-19 COVID-19 status: Negative Time Spent With Patient Time with patient: 30 to 49 minutes with 50% spent counseling/coordinating care Critical Care time: I spent a total of [] minutes of critical care time on this patient's care today; this time is exclusive of procedural time.
--- NOTE | 2021-09-18 10:22 | PM.DS.1 ---
History of Present Illness History of Present Illness Date Patient Seen: 09/18/21 Time Patient Seen: 10:22 Chief complaint: passing kidney stone Narrative: perforated diverticulitis with chronic induced immunosuppression for RA. Responding to medical management. Discharge Providers Provider Date of admission: 09/16/21 02:31 Discharge Date: 09/18/21 Consults: 09/16/21 02:26 Consult to Internal Medicine Stat Comment: Consulting Provider: Melody Musa Reason for consultation: Perforated diverticulitis Has provider been notified: Yes 09/16/21 02:30 Consult to General Surgery Urgent Comment: Consulting Provider: Melanie Schaeffer Reason for consultation: Perforated diverticulitis/admission Has provider been notified: Yes Discharge provider: Melanie Schaeffer MD Summary Status at Discharge Cognitive/behavioral status at discharge: oriented Functional status at discharge: independent ambulation Overall status at discharge: patient is progressing back to baseline Time Spent with Patient Time spent: Greater than 30 minutes Exam Vital Signs (past 8 hours): - 09/18/21 05:14 09/18/21 09:00 Temperature 97.3 F L 97.8 F Pulse Rate 55 L 62 Respiratory Rate 14 17 Blood Pressure 124/68 102/54 L Pulse Oximetry 96 98 Oxygen Flow Rate 0 0 Oxygen Delivery Method Room Air Oxygen Flow Rate 0 Narrative Exam Narrative: abdomen is distended but improved tenderness. CT scan reviewed showing no abscess, areas of free fluid. No persistent leak in implied. WBC and temperature are normal. GI function is good. Objective Labs Result Diagrams: 09/18/21 05:34 09/18/21 05:34 Labs: Laboratory Results - last 24 hr 09/18/21 09/18/21 05:34 05:34 WBC 10.9 RBC 3.48 L Hgb 11.2 L Hct 33.0 L MCV 94.8 MCH 32.1 MCHC 33.8 RDW 16.2 H Plt Count 138 L Neut % (Auto) 92.5 H Lymph % (Auto) 4.6 L [place] % (Auto) 2.1 L Eos % (Auto) 0.0 L Baso % (Auto) 0.8 Neut # (Auto) 18598 H Lymph # (Auto) 500 L [place] # (Auto) 200 Eos # (Auto) 0 Baso # (Auto) 100 Sodium 134 L Potassium 4.5 Chloride 102 Carbon Dioxide 29 BUN 19 Creatinine 0.86 Estimated GFR > 60 BUN/Creatinine Ratio 22.1 H Glucose 96 Calcium 8.6 Total Bilirubin 0.7 AST 21 ALT 21 Alkaline Phosphatase 79 Total Protein 5.7 L Albumin 3.0 L Globulin 2.7 Albumin/Globulin Ratio 1.1 PFSH Medical History Essential hypertension Fibrosis lung Rheumatoid arthritis Rheumatoid nodule Testicular cancer Surgical History History of lobectomy of lung History of lymph node biopsy Family History Sister Diabetes mellitus Mother Diabetes mellitus Father Cancer Brother Diabetes mellitus Social History marital status: details: Lives with spouse, retired disabled household members: spouse do you feel safe at home: Yes Smoking Status: Former smoker quit status: quit date established (Quit 17 yrs ago) alcohol intake: never substance use type: does not use Discharge Assessment & Plan Assessment and Plan Assessment: Perforated diverticulitis responding to medical management Plan of Treatment: Discharge home without adjustment to home meds. 10 days of cipro, flagyl and fluconazole. Should have colonoscopy in 8 to 10 weeks. IF his fails to improve or worsens, report to the closest hospital Discharge Plan Discharge Plan Patient Disposition: Home Discharge orders & Medications Prescriptions: New celecoxib [Celebrex] 200 mg Capsule 200 mg PO BID Qty: 10 0RF fluconazole [Diflucan] 100 mg Tablet 200 mg PO DAILY Qty: 10 0RF acetaminophen 325 mg Tablet 650 mg PO Q4H Qty: 40 0RF metronidazole 500 mg Tablet 500 mg PO QID Qty: 30 0RF ciprofloxacin HCl 250 mg Tablet 750 mg PO 0700,2100 Qty: 20 0RF pantoprazole 40 mg Tablet,Delayed Release (Dr/Ec) 40 mg PO 0700,2100 Qty: 20 0RF oxycodone 5 mg Tablet 5 mg PO Q3HR PRN (Reason: Pain, Moderate (4-6)) Qty: 20 0RF Continued oxycodone 5 mg Tablet 5 mg PO QID PRN (Reason: RA pain) lisinopril 5 mg Tablet 5 mg PO DAILY methotrexate sodium 2.5 mg Tablet 20 mg PO DAILY prednisone 5 mg Tablet 5 mg PO DAILY Rx Instructions: pt on a tiltration at the moment, currently taking 30 mg until this and then down to 25 mg Diet/Activity/Treatments Diet: Diet as Tolerated Skin/Wound/Dressing Care Report to your healthcare provider any signs of infection, such as:: chills, fever, night sweats and increased pain
--- NOTE | 2021-09-18 11:47 | PC.NURSE ---
Day shift: Paperwork singed and all questions answered. Spouse in room for d/c teachings. MD scripts sent to local pharmacy and Pt will pick them up. Encouraged to take all meds as directed. Reports pain 2/10 at discharge. Steady on feet. Taken to car via WC by [employer] at approx [phone]. Pt has all personal belongings.
== END 2021-09-18 11:49 | disposition home or self-care (01) | DRG 392 ==
LOC: ED 02:04 → AC 02:31
PROVIDERS: Internal Medicine; Admitting Provider Surgery; Emergency Provider Emergency Medicine; Referring Provider Emergency Medicine; Visit Provider Surgery
DX: K57.20 Diverticulitis of large intestine with perforation and abscess without bleeding (principal); D84.821 Immunodeficiency due to drugs; M06.30 Rheumatoid nodule, unspecified site; I10 Essential (primary) hypertension; Z79.52 Long term (current) use of systemic steroids; Z20.822 Contact with and (suspected) exposure to COVID-19; Z87.891 Personal history of nicotine dependence
CPT/HCPCS: 36415; 71045; 74176; 80048; 80053; 81003; 82533; 83605; 85025; 87040; 87635; 96365; 96375; 99231; 99232; 99238; 99284; C9803; J0744; J1170; J1450; J1885